=== PATIENT | female | born 1990 | race Caucasian/White ===

== ENCOUNTER 2017-12-06 15:41 | Emergency (ER) | payer SELFPAY ==
[~2017-12-06] VITALS: Ht 154.9 cm; Wt 53.5 kg
[2017-12-06 15:56] VITALS: BP 117/86
[2017-12-06 16:01] VITALS: BP 117/86
--- NOTE | 2017-12-06 17:11 | NUR ---
PT AMBULATED TO ER BED 09
--- NOTE | 2017-12-06 17:17 | NUR ---
PT C/O LEFT ELBOW PAIN S/P TRIP AND FALL 1 WEEK AGO, GREEN COOLRED BRUSIING NOTED TO LEFT ELBOW. DENIES NUMBNESS/TINGLING MED HX: ASTHMA RX: NONE
--- NOTE | 2017-12-06 17:36 | NUR ---
PT HAS FULL MOTION ON LT ELBOW, PT INSISTED ON LEAVING, ADVISED TO BE SEEN BY MD BUT PT INSISTED ON LEAVING; HORACE
== END 2017-12-06 17:36 | disposition left against medical advice (07) ==
LOC: MED 15:41
DX: M25.522 Pain in left elbow (principal); Z53.21 Procedure and treatment not carried out due to patient leaving prior to being seen by health care provider
CPT/HCPCS: 73080; 99281

== ENCOUNTER 2021-11-18 23:52 | Emergency (ER) | payer SELFPAY ==
[~2021-11-18] VITALS: Ht 162.6 cm; Wt 52.2 kg
[2021-11-18 23:57] VITALS: BP 125/89
--- NOTE | 2021-11-19 00:03 | NUR ---
PT TAKEN TO BED 9
--- NOTE | 2021-11-19 00:40 | NUR ---
31 y/o female bibs from home, C/O left foot swelling x 2 weeks, Patient reported, had left foot swelling, numbness and tingling for 2 weeks. No injury or trauma. cms intacts, no pitting, foot appears purple-jones and cold to the touch; pt states she ocasionally feels parasthesia and "pressure." cap refill <2seconds. denies, sob, cp, cough, or fever. PMHx: DENIES
--- NOTE | 2021-11-19 00:57 | NUR ---
er md at bedside examining pt
--- NOTE | 2021-11-19 01:13 | NUR ---
LAB AT BEDSIDE
[2021-11-19 01:31] LABS: BASOPHILS # (AUTO) 0.1 K/uL (0.00-0.22); BASOPHILS % (AUTO) 0.9 % (0.0-2.0); EOSINOPHILS # (AUTO) 0.6 K/uL (0-0.4); EOSINOPHILS % (AUTO) 8.8 % (0.0-4.0); HEMATOCRIT 39.5 % (36-48); HEMOGLOBIN 13.4 g/dL (12.0-16.0); LYMPHOCYTES # (AUTO) 2.1 K/uL (2.5-16.5); LYMPHOCYTES % (AUTO) 31.3 % (20.5-51.1); MEAN CORPUSCULAR HEMOGLOBIN 30 pg (27-31); MEAN CORPUSCULAR HGB CONC 34 g/dL (33-37); MONOCYTES # (AUTO) 0.7 K/uL (0.8-1.0); MONOCYTES % (AUTO) 9.7 % (1.7-9.3); NEUTROPHILS # (AUTO) 3.4 K/uL (1.8-7.7); NEUTROPHILS % (AUTO) 49.3 % (42.2-75.2); PLATELET COUNT (AUTO) 329 K/uL (140-450); RED BLOOD CELL COUNT(AUTO) 4.49 MIL/uL (4.20-5.40); RED CELL DISTRIBUTION WIDTH 12.6 % (11.6-13.7); WHITE BLOOD COUNT (AUTO) 6.8 K/uL (4.8-10.8)
--- NOTE | 2021-11-19 01:35 | NUR ---
ULTRASOUND AT BEDSIDE
[2021-11-19 01:40] LABS: ALBUMIN 3.8 g/dL (3.4-5.0); ANION GAP 8.9 (8-16); CARBON DIOXIDE 26.7 mmol/L (21-32); CREATININE 0.5 mg/dL (0.6-1.3); POTASSIUM 3.6 mmol/L (3.5-5.1); TOTAL BILIRUBIN 0.2 mg/dL (0.0-1.0)
--- NOTE | 2021-11-19 03:30 | NUR ---
PT RESTING COMFORTABLY IN BED.
--- NOTE | 2021-11-19 04:15 | NUR ---
ER DISCUSSING RESULTS WITH PT
--- NOTE | 2021-11-19 04:22 | NUR ---
PT PROVIDED WITH AMBAR WRAP TO AFFECTED FOOT BY EMT
[2021-11-19 04:27] VITALS: BP 148/90
--- NOTE | 2021-11-19 04:28 | NUR ---
Patient discharged with v/s stable. Written and verbal after care instructions given and explained. Patient verbalized understanding. Ambulatory with steady gait. All questions addressed prior to discharge. Advised to follow up with PMD. A/OX4, VSS, AMBULATORY, UNLABORED BREATHING, AND CALM DEMEANOR.
== END 2021-11-19 04:28 | disposition home or self-care (01) ==
LOC: MED 23:52
DX: R22.42 Localized swelling, mass and lump, left lower limb (principal); J45.909 Unspecified asthma, uncomplicated
CPT/HCPCS: 36415; 80053; 85025; 93926; 93971; 99284; Q0092